=== PATIENT | female | born 1940 | race Caucasian/White ===

== ENCOUNTER 2021-08-24 12:26 | Outpatient (CLI) | payer MEDICARE, BC | END 2021-08-24 12:27 | disposition home or self-care (01) | LOC: CSHMRI 12:26 | PROVIDERS: ATTEND Psychiatry & Neurology Neurology | DX: G31.83 Neurocognitive disorder with Lewy bodies (principal); F02.80 Dementia in other diseases classified elsewhere, unspecified severity, without behavioral disturbance, psychotic disturbance, mood disturbance, and anxiety; I63.50 Cerebral infarction due to unspecified occlusion or stenosis of unspecified cerebral artery; I63.89 Other cerebral infarction; I67.82 Cerebral ischemia | CPT/HCPCS: 70553; 82565 ==